=== PATIENT | male | born 1950 ===

== ENCOUNTER 2024-02-06 11:23 | Emergency (ER) | payer MEDICARE, SELFPAY ==
[2024-02-06] VITALS (16 sets, daily range): BP systolic 102–135; BP diastolic 54–94; PULSE 85–97; RESP 12–17; TEMP 36.5–36.7; O2SAT 96–100
--- NOTE | ~2024-02-06 | XR_ITS ---
XR chest 2V Ordering provider: Nick Strickland History: 73 years Male with . syncopal episode . Comparison: None. FINDINGS: MEDIASTINUM: The cardiac silhouette is slightly enlarged. LUNGS: No infiltrates, effusions or pneumothorax. OTHER: No free air under the diaphragm. Degenerative changes of the spine. Loss of volume is seen in T11 and T12. IMPRESSION: No acute cardiopulmonary pathology. Reviewed, dictated and finalized at location A. INATION WORKER
--- NOTE | ~2024-02-06 | CT_ITS ---
EXAMINATION: CT brain wo con DATE: 02/06/2024 14:18 INDICATION: Syncope TECHNIQUE: Computed tomography (CT) of the head was performed without intravenous contrast. Sagittal and coronal reconstructions were performed. The mA was adjusted according to patient size. Iterative reconstruction technique was employed. The dose-length product was 605.33 mGy-cm. COMPARISON: None FINDINGS: There is cytotoxic edema throughout the left middle cerebral artery vascular distribution involving p ortions of the left frontal, temporal and parietal lobes, the insula and portions of the left basal g anglia including the anterior body of the caudate nucleus. There is extensive secondary hemorrhagic t ransformation throughout the infarcted portion of the brain to this also small amount of intraparench ymal ventricular hemorrhage at the occipital horns of both the left and right lateral ventricles. The infarct and secondary edema and hemorrhage resulting in local mass effect with effacement of the ove rlying cisterns as well as asymmetric loss of volume in the left lateral ventricle particularly at th e occipital and temporal horns. There is also 3 mm left to right midline shift as well as mild uncal herniation with slight widening of the left versus the right sides of the prepontine cistern. Symmetric prominence of the sulci and mild enlargement of the remaining ventricles consistent with mi ld age-appropriate diffuse cerebral volume loss. No abnormal extra axial fluid collection. No discret e masses identified. There is complete opacification of the right sphenoid sinus and a couple posteri or right ethmoid air cells with additional mucosal thickening in the more anterior air cells and in t he dependent right maxillary sinus. Small right mastoid effusion. There is debris/cerumen at the bila teral external auditory canals. IMPRESSION: 1. Large likely acute to subacute infarct involving the left middle cerebral artery vascular distribu tion with extensive secondary hemorrhagic transformation throughout the region of infarct. The signif icant mass effect results in mild subfalcine and slight left uncal herniation. Dr. Dinh discussed these findings with Dr. Strickland at 2:28 PM. 2. Small amount of blood in the left and right lateral ventricles. Reviewed, dictated and finalized at location B. ER COATER IMPRESSION: 1. Large likely acute to subacute infarct involving the left middle cerebral ar sangeetha vascular distribution with extensive secondary hemorrhagic transformation throughout the region of infarct. The significant mass effect results in mild s ubfalcine and slight left uncal herniation. Dr. Dinh discussed these findin gs with Dr. Strickland at 2:28 PM. 2. Small amount of blood in the left and right lateral ventricles.
--- NOTE | 2024-02-06 11:33 | ECG_ITS ---
Test Date: 2024-02-06 11:45:54 Measurements Intervals [place] Rate: 91 P: 41 [place]: 130 QRS: -13 QRSD: 90 T: 116 QT: 351 QTc: 433 Interpretive Statements SINUS RHYTHM DELAYED PRECORDIAL R/S TRANSITION LEFT VENTRICULAR HYPERTROPHY AND ST-T CHANGE CONSIDER INFERIOR INFARCT, AGE INDETERMINATE ABNORMAL ECG No previous ECG available for comparison Electronically Signed On 02-06-2024 11:58:57 SENIOR C SOFTWARE DEVELOPER by Marino Nance D.O.
[2024-02-06 11:59] LABS: Basophils Absolute Auto 0.1 K/mm3 (0.0-0.1); Basophils Percent Auto 0.4 % (0.2-1.2); Eosinophils Absolute Auto 0.1 K/mm3 (0-0.3); Eosinophils Percent Auto 0.7 % (0-4.4); Hematocrit 26.5 % (42.0-52.0); Immature Granulocyte Absolute 0.06 K/mm3 (0.00-0.031); Immature Granulocyte Percent A 0.4 % (0-0.5); Lymphocytes Absolute Auto 1.54 K/mm3 (0.9-3.2); Lymphocytes Percent Auto 11.4 % (18.3-44.2); Mean Corpuscular Hemoglobin 33.8 pg (26-34); Mean Corpuscular Volume 99.6 fl (80-100); Mean Platelet Volume 9.3 fl (7.4-10.4); Monocytes Absolute Auto 0.7 K/mm3 (0.1-0.6); Monocytes Percent Auto 5.1 % (2.6-8.5); Neutrophils Absolute Auto 11.1 K/mm3 (1.3-6.7); Platelet Count Result 340 k/mm3 (150-375); Red Blood Count 2.66 M/mm3 (4.6-6.20); Red Cell Distribution Width 12.6 % (11.5-14.5); White Blood Count 13.6 K/mm3 (4.5-10.0)
[2024-02-06 12:03] LABS: Alanine Aminotransferase 51 U/L (6-50); Albumin Level 3.1 g/dL (3.5-5.1); Alkaline Phosphatase 59 U/L (38-126); Anion Gap 5 mmol/L (4-12); Aspartate Amino Transferase 24 U/L (17-59); Bilirubin,Total 0.9 mg/dL (0.2-1.3); Blood Urea Nitrogen 57 mg/dL (9-20); Calcium 9.1 mg/dL (8.4-10.2); Carbon Dioxide 25 mmol/L (22-30); Chloride 103 mmol/L (98-107); Estimated CRCL calculation 65 ml/min; Estimated Glomerular Filt Rate > 60; Glucose 150 mg/dL (65-110); Potassium 4.5 mmol/L (3.4-5.0); Sodium 133 mmol/L (137-145)
[2024-02-06 13:31] LABS: Troponin I 0.053 ng/mL (0.000-0.034)
--- NOTE | 2024-02-06 13:43 | ECG_ITS ---
Test Date: 2024-02-06 13:54:26 Measurements Intervals [place] Rate: 83 P: 40 [place]: 127 QRS: -11 QRSD: 87 T: 124 QT: 361 QTc: 426 Interpretive Statements SINUS RHYTHM WITH OCCASIONAL SUPRAVENTRICULAR PREMATURE COMPLEXES LEFT VENTRICULAR HYPERTROPHY WITH ST-T CHANGE CONSIDER INFERIOR INFARCT, AGE INDETERMINATE BASELINE ARTIFACT- I, III, AVR, AVL, AVF, V4-V6 ABNORMAL ECG Compared to ECG 02/06/2024 11:45:54 NO SIGNIFICANT CHANGE Electronically Signed On 02-06-2024 14:25:10 HEBREW CANTOR by Marino Nance D.O.
--- NOTE | 2024-02-06 14:12 | ED_ITS ---
HPI - General Adult General Chief complaint: Syncope Stated complaint: syncopal Time Seen by Provider: 02/06/24 13:21 History of Present Illness HPI narrative: 73-year-old male present to the emergency department for evaluation after having a syncopal episode while he was in physical therapy. Patient did have a stroke on 01/15 at [facility] and was treated with TNK and transferred to [facility]. Patient was discharged from [facility] and has been at a local rehab facility. Today at the rehab facility patient had a syncopal episode and was then transferred to the emergency department. family states that the patient had no falls or injuries. Patient is still at his current nonverbal baseline. Patient does respond to questioning and said no to any pain. Patient does not appear to be in distress. Related Data Home Medications Medication Instructions Recorded Confirmed amlodipine 10 mg tablet 10 mg PO DAILY 02/01/24 02/01/24 aspirin 81 mg chewable tablet 81 mg PO DAILY 02/01/24 02/01/24 doxazosin 1 mg tablet 1 mg PO HS 02/01/24 02/01/24 insulin glargine 100 unit/mL (3 7 unit subcut QPM 02/01/24 02/01/24 mL) subcutaneous pen insulin lispro 100 unit/mL 1 sliding scale dose subcut 02/01/24 02/01/24 subcutaneous solution TIDWMEAL losartan 100 mg tablet 100 mg PO DAILY 02/01/24 02/01/24 nystatin 100,000 unit/mL oral 500,000 unit PO QID 02/01/24 02/01/24 suspension polyethylene glycol 3350 17 gram 17 g PO DAILY 02/01/24 02/01/24 oral powder packet spironolactone 50 mg tablet 50 mg PO DAILY 02/01/24 02/01/24 Allergies Allergy/AdvReac Type Severity Reaction Status Date / Time chlorhexidine Allergy Itching Verified 02/01/24 17:39 simvastatin Allergy Rash Verified 02/01/24 17:39 bempedoic acid AdvReac Nausea Verified 02/01/24 17:39 choline fenofibrate AdvReac Other Verified 02/01/24 17:39 codeine AdvReac Nausea Verified 02/01/24 17:39 empagliflozin AdvReac Other Verified 02/01/24 17:39 ezetimibe AdvReac Headache Verified 02/01/24 17:39 metoprolol AdvReac Dizziness Verified 02/01/24 17:39 Review of Systems Review of Systems: All systems reviewed & are unremarkable except as noted in HPI and below PMFSH Past Medical History Medical History Constipation HLD (hyperlipidemia) Social History Social History Smoking status: Unknown if ever smoked Alcohol intake: unknown Substance use: unknown Spiritual care concerns: No Exam Narrative: APPEARANCE: no distress HEAD: normocephalic, atraumatic. EYES: PERRLA/EOMI, conjunctivae clear. NOSE: Normal no drainage RESPIRATORY: Airway patent, respirations nonlabored. Clear to auscultation bilaterally, no rales, rhonchi, wheezing. CARDIOVASCULAR: Regular rate and rhythm without murmurs rubs or gallops. ABDOMINAL: Soft, nontender, nondistended, normal bowel sounds MUSCULOSKELETAL: Moves all extremities. Strength/ROM intact, No edema, No calf tenderness. NEURO: Alert. Left-sided deficit SKIN: Warm, dry. Normal Color Course Vital Signs Vital signs: Vital Signs Temperature 97.7 F 02/06/24 11:19 Pulse Rate 93 02/06/24 11:19 Respiratory Rate 15 02/06/24 11:19 Blood Pressure 126/65 02/06/24 11:19 Pulse Oximetry 99 02/06/24 11:19 Oxygen Delivery Room Air 02/06/24 11:19 Temperature 98.0 F 02/06/24 17:30 Pulse Rate 92 02/06/24 18:00 Respiratory Rate 14 02/06/24 18:00 Blood Pressure 128/57 L 02/06/24 18:00 Pulse Oximetry 99 02/06/24 18:00 Oxygen Delivery Room Air 02/06/24 11:19 Medical Decision Making MDM Narrative Medical decision making narrative: 73-year-old male present to the emergency department for evaluation for altered mental status. Family feels the patient is at his new neuro baseline. family confirms that the patient is a full code and the would want to pursue surgical intervention if needed. Patient is afebrile but does have a leukocytosis of 13.6 and hemoglobin of 9.0. No acute abnormalities on his CMP, patient does have an elevated troponin with no changes on the EKG suggest of acute STEMI. Patient denies any chest pain. Head CT showed hemorrhagic transition of his left MCA infarct with 3 mm of [id number] midline shift with some blood in ventricles. Since patient got his medical care at [facility] was recalled. @[id number] Vang with neuro from [facility] patient was accepted for transfer to [facility]. Recommended systolic blood pressure was less than 160. Patient's blood pressure stayed close to 130s during his time prior to transfer. Patient family were updated on the results of the workup and necessity for transfer. All questions concerns were addressed. Vital Signs Vital Signs: Vital Signs Temperature 97.7 F 02/06/24 11:19 Pulse Rate 93 02/06/24 11:19 Respiratory Rate 15 02/06/24 11:19 Blood Pressure 126/65 02/06/24 11:19 Pulse Oximetry 99 02/06/24 11:19 Oxygen Delivery Room Air 02/06/24 11:19 Temperature 98.0 F 02/06/24 17:30 Pulse Rate 92 02/06/24 18:00 Respiratory Rate 14 02/06/24 18:00 Blood Pressure 128/57 L 02/06/24 18:00 Pulse Oximetry 99 02/06/24 18:00 Oxygen Delivery Room Air 02/06/24 11:19 Lab Data 02/06/24 11:48 02/06/24 11:48 Labs: Lab Results 02/06/24 02/06/24 02/06/24 Range/Units 11:48 11:51 15:00 WBC 13.6 H (4.5-10.0) K/mm3 RBC 2.66 L (4.6-6.20) M/mm3 Hgb 9.0 L (14.0-18.0) g/dL Hct 26.5 L (42.0-52.0) % MCV 99.6 (80-100) fl MCH 33.8 (26-34) pg MCHC 34.0 (32-36) g/dl RDW 12.6 (11.5-14.5) % Plt Count 340 (150-375) k/mm3 MPV 9.3 (7.4-10.4) fl Immature Gran % (Auto) 0.4 (0-0.5) % Neut % (Auto) 82.0 H (45.5-73.1) % Lymph % (Auto) 11.4 L (18.3-44.2) % Logan % (Auto) 5.1 (2.6-8.5) % Eos % (Auto) 0.7 (0-4.4) % Baso % (Auto) 0.4 (0.2-1.2) % Lymph # (Auto) 1.54 (0.9-3.2) K/mm3 Logan # (Auto) 0.7 H (0.1-0.6) K/mm3 Eos # (Auto) 0.1 (0-0.3) K/mm3 Baso # (Auto) 0.1 (0.0-0.1) K/mm3 Abs Immat Gran (auto) 0.06 H (0.00-0.031) K/mm3 Absolute Neuts (auto) 11.1 H (1.3-6.7) K/mm3 Absolute Nucleated RBC 0.000 (0.0-0.012) K/mm3 Nucleated RBC % 0.0 (0.0-0.2) % PT 14.9 H (11.1-14.7) Seconds INR 1.1 APTT 27.8 (22.3-36.8) Seconds Sodium 133 L (137-145) mmol/L Potassium 4.5 (3.4-5.0) mmol/L Chloride 103 (98-107) mmol/L Carbon Dioxide 25 (22-30) mmol/L Anion Gap 5 (4-12) mmol/L BUN 57 H D (9-20) mg/dL Creatinine 0.90 (0.7-1.3) mg/dL Estim Creat Clear Calc 65 ml/min Estimated GFR > 60 (59 - ) Glucose 150 H (65-110) mg/dL Calcium 9.1 (8.4-10.2) mg/dL Total Bilirubin 0.9 (0.2-1.3) mg/dL AST 24 (17-59) U/L ALT 51 H (6-50) U/L Alkaline Phosphatase 59 (38-126) U/L Troponin I 0.053 H* 0.060 H* (0.000-0.034) ng/mL Total Protein 6.0 L (6.3-8.2) g/dL Albumin 3.1 L (3.5-5.1) g/dL 02/06/24 Range/Units 17:28 WBC (4.5-10.0) K/mm3 RBC (4.6-6.20) M/mm3 Hgb (14.0-18.0) g/dL Hct (42.0-52.0) % MCV (80-100) fl MCH (26-34) pg MCHC (32-36) g/dl RDW (11.5-14.5) % Plt Count (150-375) k/mm3 MPV (7.4-10.4) fl Immature Gran % (Auto) (0-0.5) % Neut % (Auto) (45.5-73.1) % Lymph % (Auto) (18.3-44.2) % Logan % (Auto) (2.6-8.5) % Eos % (Auto) (0-4.4) % Baso % (Auto) (0.2-1.2) % Lymph # (Auto) (0.9-3.2) K/mm3 Logan # (Auto) (0.1-0.6) K/mm3 Eos # (Auto) (0-0.3) K/mm3 Baso # (Auto) (0.0-0.1) K/mm3 Abs Immat Gran (auto) (0.00-0.031) K/mm3 Absolute Neuts (auto) (1.3-6.7) K/mm3 Absolute Nucleated RBC (0.0-0.012) K/mm3 Nucleated RBC % (0.0-0.2) % PT (11.1-14.7) Seconds INR APTT (22.3-36.8) Seconds Sodium (137-145) mmol/L Potassium (3.4-5.0) mmol/L Chloride (98-107) mmol/L Carbon Dioxide (22-30) mmol/L Anion Gap (4-12) mmol/L BUN (9-20) mg/dL Creatinine (0.7-1.3) mg/dL Estim Creat Clear Calc ml/min Estimated GFR (59 - ) Glucose (65-110) mg/dL Calcium (8.4-10.2) mg/dL Total Bilirubin (0.2-1.3) mg/dL AST (17-59) U/L ALT (6-50) U/L Alkaline Phosphatase (38-126) U/L Troponin I 0.062 H* (0.000-0.034) ng/mL Total Protein (6.3-8.2) g/dL Albumin (3.5-5.1) g/dL Critical Care Time Critical Care Time Critical Care Time: Yes Total Critical Care Time: 35 Discharge Plan Discharge Clinical Impression: Intracranial hemorrhage Patient Disposition: Acute Care Hospital Condition: Stable Prescriptions: No Action nystatin 100,000 unit/mL Suspension 500,000 unit PO QID Rx Instructions: x3 doses polyethylene glycol 3350 17 gram Powder In Packet 17 g PO DAILY doxazosin 1 mg Tablet 1 mg PO HS amlodipine 10 mg Tablet 10 mg PO DAILY aspirin 81 mg Tablet,Chewable 81 mg PO DAILY insulin lispro 100 unit/mL Solution 1 sliding scale dose SUBCUT TIDWMEAL Protocol: Insulin Corrective Low-Dose Condition: glucose < 70 mg/dl Dose/Route: Follow Hypoglycemia Order Condition: glucose 70-149 mg/dl Dose/Route: No insulin Condition: glucose 150-199 mg/dl Dose/Route: No insulin Condition: glucose 200-249 mg/dl Dose/Route: 1 units sub-Q Condition: glucose 250-299 mg/dl Dose/Route: 2 units sub-Q Condition: glucose 300-349 mg/dl Dose/Route: 3 units sub-Q Instruction: Notify provider Condition: glucose > 349 mg/dl Dose/Route: 4 units sub-Q Instruction: Notify provider Protocol Text: Notify provider for blood glucose greater than 299 mg/dL losartan 100 mg Tablet 100 mg PO DAILY spironolactone 50 mg Tablet 50 mg PO DAILY insulin glargine 100 unit/mL (3 mL) Insulin Pen 7 unit SUBCUT QPM Follow-up/Referrals: Mary Ellen,Tadeo Kendall MD [Primary Care Provider] -
--- NOTE | 2024-02-06 14:54 | ECG_ITS ---
Test Date: 2024-02-06 15:00:31 Measurements Intervals [place] Rate: 85 P: 61 [place]: 127 QRS: -10 QRSD: 97 T: 124 QT: 350 QTc: 418 Interpretive Statements SINUS RHYTHM LEFT VENTRICULAR HYPERTROPHY WITH ST-T CHANGE BORDERLINE ST ABNORMALITY- LATERAL LEADS BORDERLINE ECG Compared to ECG 02/06/2024 13:54:26 NO SIGNIFICANT CHANGE Electronically Signed On 02-06-2024 15:26:18 BOTTOM CRANE OPERATOR by Marino Nance D.O.
[2024-02-06 15:13] LABS: INR 1.1; Prothrombin Time 14.9 Seconds (11.1-14.7)
[2024-02-06 15:14] LABS: Partial Thromboplastin Time 27.8 Seconds (22.3-36.8)
--- NOTE | 2024-02-06 17:19 | ECG_ITS ---
Test Date: 2024-02-06 17:29:51 Measurements Intervals [place] Rate: 88 P: 54 [place]: 130 QRS: 9 QRSD: 88 T: 133 QT: 347 QTc: 421 Interpretive Statements SINUS RHYTHM WITH OCCASIONAL VENTRICULAR PREMATURE COMPLEX LEFT VENTRICULAR HYPERTROPHY WITH ST-T CHANGE BORDERLINE ST ABNORMALITY- LATERAL LEADS BORDERLINE ECG Compared to ECG 02/06/2024 15:00:31 NO SIGNIFICANT CHANGE Electronically Signed On 02-06-2024 18:31:49 PROPULSION GENERATOR REPAIRER by Marino Nance D.O.
[2024-02-06 18:00] LABS: Troponin I 0.062 ng/mL (0.000-0.034)
== END 2024-02-06 18:20 | disposition short-term general hospital (02) ==
PROVIDERS: Emergency Provider Emergency Medicine; PCP Internal Medicine Geriatric Medicine
DX: I62.9 Nontraumatic intracranial hemorrhage, unspecified (principal); E78.5 Hyperlipidemia, unspecified; Z79.82 Long term (current) use of aspirin; Z79.4 Long term (current) use of insulin; Z79.899 Other long term (current) drug therapy; I51.7 Cardiomegaly; I49.1 Atrial premature depolarization; R94.31 Abnormal electrocardiogram [ECG] [EKG]; Z86.73 Personal history of transient ischemic attack (TIA), and cerebral infarction without residual deficits
CPT/HCPCS: 36415; 70450; 71046; 80053; 84484; 85025; 85610; 85730; 93005; 99291